=== PATIENT | male | born 1960 | race Caucasian/White ===

== ENCOUNTER → 2020-01-31 | Outpatient (CLI) | payer MEDICARE ==
--- NOTE | 2020-01-31 09:15 | US ---
EXAMINATION TYPE: US gallbladder DATE OF EXAM: 01/31/2020 COMPARISON: None CLINICAL HISTORY: 59-year-old male K81.9Cholecystitis, K29.71Gastritis. Epigastric pain TECHNIQUE: Multiple sonographic images of the right upper quadrant are obtained. FINDINGS: EXAM MEASUREMENTS: Liver Length: 15.9 cm Gallbladder Wall: 0.2 cm CBD: 0.4 cm Right Kidney: 9.4 x 5.3 x 5.9 cm Pancreas: Tail obscured by overlying bowel gas, appears echogenic in appearance Liver: Mildly echogenic. No focal lesion seen. Gallbladder: Multiple mobile echogenic foci seen. The gallbladder itself is mildly distended to 4.1 cm wide. No wall thickening or surrounding fluid. Evidence for sonographic King's sign: neg CBD: wnl Right Kidney: No hydronephrosis. IMPRESSION: 1. Mildly hydropic gallbladder with cholelithiasis. However, there is no wall thickening or sonograph ic King sign. Gallbladder distention probably due to fasting state. If right upper quadrant pain de velops, HIDA scan can be considered. 2. No biliary ductal dilatation. 3. Suspect mild fatty infiltration of the liver.
== END | disposition home or self-care (01) ==
LOC: RADUSWWP 07:17
PROVIDERS: ATTEND Family Medicine
DX: K82.8 Other specified diseases of gallbladder (principal); K80.20 Calculus of gallbladder without cholecystitis without obstruction
CPT/HCPCS: 76705

== ENCOUNTER → 2020-02-17 | Outpatient (CLI) | payer MEDICARE ==
--- NOTE | 2020-02-18 07:55 | NM ---
EXAMINATION TYPE: NM hepatobiliary wo EF DATE OF EXAM: 02/17/2020 COMPARISON: NONE INDICATION: Right upper quadrant pain TECHNIQUE: After the intravenous administration of 4.2 mCi Tc 99m Mebrofenin hepatobiliary scintigrap hy is performed. Images were obtained immediately post injection. FINDINGS: There is prompt uptake and excretion of radiotracer by the liver. Extrahepatic ducts are identified at 10 minutes. Small bowel activity is noted within 14 minutes. Gallbladder is not identified. Cystic duct obstruction should be considered. Correlate for acute chol ecystitis IMPRESSION: 1. Nonvisualization of the gallbladder. Correlate for acute cholecystitis.
== END | disposition home or self-care (01) ==
LOC: RADNMMAIN 14:15
PROVIDERS: ATTEND Family Medicine
DX: R10.11 Right upper quadrant pain (principal)
CPT/HCPCS: 78226; A9537

== ENCOUNTER → 2023-03-25 | Outpatient (CLI) | payer MEDICARE ==
--- NOTE | 2023-03-26 10:26 | CA ---
Transthoracic Echo Report Name: Stevie Hernandez Age: 62 Gender: M : 1960 Exam Date: 03/25/2023 14:03 Exam Location: [facility] Ht (in): 72 Wt (lb): 160 Ordering Physician: Max Burnette DO Attending/Referring Phys: Anai Armando NPC Rug Washer Nori Brown RDCS Procedure CPT: Indications: I10 HTN Cardiac Hx: Technical Quality: Fair Contrast 1: Total Dose (mL): Contrast 2: Total Dose (mL): MEASUREMENTS (Male / Female) Normal Values 2D ECHO LV Diastolic Diameter PLAX 3.7 cm 4.2 - 5.9 / 3.9 - 5.3 cm LV Systolic Diameter PLAX 2.3 cm IVS Diastolic Thickness 1.6 cm 0.6 - 1.0 / 0.6 - 0.9 cm LVPW Diastolic Thickness 1.4 cm 0.6 - 1.0 / 0.6 - 0.9 cm LV Relative Wall Thickness 0.8 RV Internal Dim ED PLAX 2.9 cm M-MODE Aortic Root Diameter MM 3.5 cm LA Systolic Diameter MM 2.2 cm LA Ao Ratio MM 0.6 AV Cusp Separation MM 3.5 cm DOPPLER AV Peak Velocity 133.7 cm/s AV Peak Gradient 7.2 mmHg AV Mean Velocity 78.6 cm/s AV Mean Gradient 3.1 mmHg AV Velocity Time Integral 20.7 cm LVOT Peak Velocity 105.5 cm/s LVOT Peak Gradient 4.4 mmHg LVOT Velocity Time Integral 19.9 cm Mitral E Point Velocity 83.1 cm/s Mitral A Point Velocity 100.9 cm/s Mitral E to A Ratio 0.8 MV Deceleration Time 217.1 ms MV E' Velocity 6.4 cm/s Mitral E to MV E' Ratio 13.0 TR Peak Velocity 326.8 cm/s TR Peak Gradient 42.7 mmHg Right Ventricular Systolic Press 52.7 mmHg FINDINGS Left Ventricle Moderately increased left ventricular wall thickness. Left ventricular cavity size normal. Normal left ventricular systolic function with no obvious regional wall motion abnormalities. Left ventricular ejection fraction is estimated at 55-60 %. Right Ventricle Normal right ventricular size and function. Moderate pulmonary hypertension. Right ventricular systolic pressure estimated at 53 mm hg. Right Atrium Normal right atrial size. Left Atrium Normal left atrial size. Mitral Valve Mild thickening/calcification of the anterior mitral valve leaflet. Mild mitral annular calcification. [id number] mitral regurgitation. Aortic Valve No aortic valve stenosis or regurgitation. Tricuspid Valve Structurally normal tricuspid valve. [id number] tricuspid regurgitation. Pulmonic Valve Trace pulmonic regurgitation. Pericardium No pericardial effusion. Aorta Normal size aortic root and proximal ascending aorta. CONCLUSIONS LVH with preserved systolic function Moderate pulmonary hypertension Thickened mitral valve leaflets with 1-2+ mitral regurgitation Previewed by: Dr. Dae Quan MD (Electronically Signed) Final Date: 26 March 2023 10:25
== END | disposition home or self-care (01) ==
LOC: RADECHMAIN 13:53
PROVIDERS: ATTEND Family Medicine
DX: I34.0 Nonrheumatic mitral (valve) insufficiency (principal); I27.0 Primary pulmonary hypertension; R22.43 Localized swelling, mass and lump, lower limb, bilateral
CPT/HCPCS: 93306

== ENCOUNTER 2023-07-28 08:41 | Emergency (ER) | payer MEDICARE ==
--- NOTE | 2023-07-28 08:48 | ED ---
General Adult HPI - General Stated complaint: Seizure Time Seen by Provider: 07/28/23 08:41 Source: patient, RN notes reviewed, old records reviewed - History of Present Illness Initial comments: This is a 62-year-old male whose found him down in the bathroom and he had a seizure. When EMS arrived he was no longer seizing but he then began to seize again and according to EMS he had a total of 4 seizures this morning. EMS did give 5 mg of Versed. states he has had no history of seizures. There did not appear to be any trauma. According to the slept on the couch last night because he was coughing quite a bit and she heard something this morning in the bathroom when she went to check on him. Patient is not on any blood thinners. And at this time there is no other history available. - Related Data Home Medications Medication Instructions Recorded Confirmed Vancomycin 1,500 mg IV BID 02/11/14 02/11/14 Previous Rx's Medication Instructions Recorded HYDROcodone/APAP 7.5-325MG [[place] 1 each PO Q6H PRN #30 tab 02/16/14 7.5-325] Nicotine 21Mg/24Hr Patch [Habitrol] 1 patch TRANSDERM DAILY #5 patch 02/16/14 Omeprazole [PriLOSEC] 40 mg PO AC-BRKFST #30 capsule. 02/16/14 Warfarin [Coumadin] 2.5 mg PO DAILY@1800 #30 tablet 02/16/14 bisacodyL [Dulcolax] 5 mg PO DAILY PRN #30 tablet. 02/16/14 Allergies Allergy/AdvReac Type Severity Reaction Status Date / Time No Known Allergies Allergy Verified 07/28/23 08:47 Review of Systems ROS Statement: Those systems with pertinent positive or pertinent negative responses have been documented in the HPI. ROS Other: All systems not noted in ROS Statement are negative. Past Medical History Past Medical History: Deep Vein Thrombosis (DVT), Hypertension History of Any Multi-Drug Resistant Organisms: None Reported Past Surgical History: Orthopedic Surgery Additional Past Surgical History / Comment(s): lt leg---rods Past Anesthesia/Blood Transfusion Reactions: No Reported Reaction Past Psychological History: No Psychological Hx Reported Past Alcohol Use History: None Reported General Exam - General Exam Comments Initial Comments: GENERAL: Patient is well-developed and well-nourished. Patient is nontoxic and well- hydrated and is in no acute distress. ENT: Neck is soft and supple. No significant lymphadenopathy is noted. Oropharynx is clear. Moist mucous membranes. Neck has full range of motion without eliciting any pain. EYES: The sclera were anicteric and conjunctiva were pink and moist. Extraocular movements were intact and pupils were equal round and reactive to light. Eyelids were unremarkable. PULMONARY: Unlabored respirations. Good breath sounds bilaterally. No audible rales rhonchi or wheezing was noted. CARDIOVASCULAR: Patient is tachycardic at 130 beats a minute ABDOMEN: Soft and nontender with normal bowel sounds. No palpable organomegaly was noted. There is no palpable pulsatile mass. SKIN: Skin is clear with no lesions or rashes and otherwise unremarkable. NEUROLOGIC: Patient is is not alert at this time.. Cranial nerves II through XII are grossly intact. MUSCULOSKELETAL: Normal extremities with adequate strength and full range of motion. No lower e xtremity swelling or edema. No calf tenderness. LYMPHATICS: No significant lymphadenopathy is noted PSYCHIATRIC: Unable to assess Course Vital Signs 07/28/23 07/28/23 07/28/23 08:42 10:16 10:29 Temperature 98.1 F Pulse Rate 129 H 111 H 118 H Respiratory 20 22 20 Rate Blood Pressure 189/111 163/103 149/90 O2 Sat by Pulse 94 L 100 100 Oximetry Medical Decision Making - Medical Decision Making EKG was interpreted by myself. EKG shows a sinus tachycardia on a 133 bpm LA interval 250 one QRS is 88 QT interval 306 QTC is 384. Patient's EKG shows no ST segment elevation or depression it is a very poor quality EKG Was pt. sent in by a medical professional or institution (, PA, [employer], urgent care, hospital, or fpc...) When possible be specific @ -No Did you speak to anyone other than the patient for history (EMS, parent, family, police, friend...)? What history was obtained from this source @ -Developed a history initially Did you review nursing and triage notes (agree or disagree)? Why? @ -I reviewed and agree with nursing and triage notes Were old charts reviewed (outside hosp., previous admission, EMS record, old EKG, old radiological studies, urgent care reports/EKG's, fpc records)? Report findings @ -I reviewed prior charts and lab work on this patient Differential Diagnosis (chest pain, altered mental status, abdominal pain women, abdominal pain men, vaginal bleeding, weakness, fever, dyspnea, syncope, headache, dizziness, GI bleed, back pain, seizure, CVA, palpatations, mental health, musculoskeletal)? @ -Differential Altered Mental Status: Hypoglycemia, DKA, hypercapnia, ETOH, overdose, CO poisoning, trauma, myxedema coma, HTN encephalopathy, infection, encephalitis, psychosis, intercranial hemorrhage, hepatic encephalopathy, meningitis, CVA, this is not meant to be an all-inclusive list EKG interpreted by me (3pts min.). @ -As above X-rays interpreted by me (1pt min.). @ -Chest x-ray shows no acute abnormality CT interpreted by me (1pt min.). @ -CT of the brain shows a subarachnoid hemorrhage in the frontal portion of the brain. CT of the C-spine shows no acute abnormality U/S interpreted by me (1pt. min.). @ -None done What testing was considered but not performed or refused? (CT, X-rays, U/S, labs)? Why? @ -None What meds were considered but not given or refused? Why? @ -None Did you discuss the management of the patient with other professionals (professionals i.e. , PA, [employer], lab, RT, psych nurse, secondary social studies teacher, sustainability communicator, teacher, special weapons and tactics officer, telephonic nurse case manager)? Give summary @ -I spoke with Dr. Aguilar and he wanted the patient transferred [facility]. Spoke with family did initially wanted the patient to go to [facility] but since the neurointerventionalist Alan looked at the films and [facility] was already contacted family reconsidered and decided go to [facility]. Patient's blood pressure was elevated I started the patient on Cardene to bring her blood pressure down under 162 about 140. Patient was also given Keppra Was smoking cessation discussed for >3mins.? @ -No Was critical care preformed (if so, how long)? @ -35 minutes Were there social determinants of health that impacted care today? How? (Homelessness, low income, unemployed, alcoholism, drug addiction, transportation, low edu. Level, literacy, decrease access to med. care, correction, rehab)? @ -No Was there de-escalation of care discussed even if they declined (Discuss DNR or withdrawal of care, Hospice)? DNR status @ -No What co-morbidities impacted this encounter? (DM, HTN, Smoking, COPD, CAD, Cancer, CVA, ARF, Chemo, Hep., AIDS, mental health diagnosis, sleep apnea, morbid obesity)? @ -None Was patient admitted / discharged? Hospital course, mention meds given and route, prescriptions, significant lab abnormalities, going to OR and other pertinent info. @ -I spoke with [facility] ER physician Dr. Trevino and they accepted the transfer of patient will be transferred Undiagnosed new problem with uncertain prognosis? @ -No Drug Therapy requiring intensive monitoring for toxicity (Heparin, Nitro, Insulin, Cardizem)? @ -No Were any procedures done? @ -No Diagnosis/symptom? @ -Subarachnoid hemorrhage Acute, or Chronic, or Acute on Chronic? @ -Acute Uncomplicated (without systemic symptoms) or Complicated (systemic symptoms)? @ -Complicated Side effects of treatment? @ -No Exacerbation, Progression, or Severe Exacerbation? @ -No Poses a threat to life or bodily function? How? (Chest pain, USA, MS, pneumonia, PE, COPD, DKA, ARF, appy, cholecystitis, CVA, Diverticulitis, Homicidal, Suicidal, threat to staff... and all critical care pts) @ -Yes this could lead to increase hemorrhage and - Lab Data Result diagrams: 07/28/23 08:56 07/28/23 08:56 Lab Results 07/28/23 07/28/23 07/28/23 Range/Units 08:52 08:56 08:56 WBC 25.8 H (3.8-10.6) k/uL RBC 5.70 (4.30-5.90) m/uL Hgb 18.1 H (13.0-17.5) gm/dL Hct 56.9 H (39.0-53.0) % MCV 99.9 (80.0-100.0) fL MCH 31.8 (25.0-35.0) pg MCHC 31.8 (31.0-37.0) g/dL RDW 17.2 H (11.5-15.5) % Plt Count 376 (150-450) k/uL MPV 9.5 Neutrophils % 87 % Lymphocytes % 4 % Monocytes % 7 % Eosinophils % 0 % Basophils % 0 % Neutrophils # 22.5 H (1.3-7.7) k/uL Lymphocytes # 1.1 (1.0-4.8) k/uL Monocytes # 1.8 H (0-1.0) k/uL Eosinophils # 0.1 (0-0.7) k/uL Basophils # 0.1 (0-0.2) k/uL Hypochromasia Slight Anisocytosis Slight Macrocytosis Slight Sodium (137-145) mmol/L Potassium (3.5-5.1) mmol/L Chloride (98-107) mmol/L Carbon Dioxide (22-30) mmol/L Anion Gap mmol/L BUN (9-20) mg/dL Creatinine (0.66-1.25) mg/dL Est GFR (CKD-EPI)AfAm (>60 ml/min/1.73 sqM) Est GFR (CKD-EPI)NonAf (>60 ml/min/1.73 sqM) Glucose (74-99) mg/dL POC Glucose (mg/dL) 212 H (70-110) mg/dL POC Glu Research/Program Director ID Johny Pace Calcium (8.4-10.2) mg/dL Total Bilirubin (0.2-1.3) mg/dL AST (17-59) U/L ALT (4-49) U/L Alkaline Phosphatase (38-126) U/L Troponin I (0.000-0.034) ng/mL Total Protein (6.3-8.2) g/dL Albumin (3.5-5.0) g/dL Ur Drug Screen Comment SEE COMMENT 07/28/23 07/28/23 Range/Units 08:56 08:56 WBC (3.8-10.6) k/uL RBC (4.30-5.90) m/uL Hgb (13.0-17.5) gm/dL Hct (39.0-53.0) % MCV (80.0-100.0) fL MCH (25.0-35.0) pg MCHC (31.0-37.0) g/dL RDW (11.5-15.5) % Plt Count (150-450) k/uL MPV Neutrophils % % Lymphocytes % % Monocytes % % Eosinophils % % Basophils % % Neutrophils # (1.3-7.7) k/uL Lymphocytes # (1.0-4.8) k/uL Monocytes # (0-1.0) k/uL Eosinophils # (0-0.7) k/uL Basophils # (0-0.2) k/uL Hypochromasia Anisocytosis Macrocytosis Sodium 141 (137-145) mmol/L Potassium 4.0 (3.5-5.1) mmol/L Chloride 96 L (98-107) mmol/L Carbon Dioxide 13 L (22-30) mmol/L Anion Gap 32 mmol/L BUN 21 H (9-20) mg/dL Creatinine 1.26 H (0.66-1.25) mg/dL Est GFR (CKD-EPI)AfAm 70 (>60 ml/min/1.73 sqM) Est GFR (CKD-EPI)NonAf 60 (>60 ml/min/1.73 sqM) Glucose 222 H (74-99) mg/dL POC Glucose (mg/dL) (70-110) mg/dL POC Glu Research/Program Director ID Calcium 11.1 H (8.4-10.2) mg/dL Total Bilirubin 1.1 (0.2-1.3) mg/dL AST 63 H (17-59) U/L ALT 51 H (4-49) U/L Alkaline Phosphatase 92 (38-126) U/L Troponin I 0.049 H* (0.000-0.034) ng/mL Total Protein 8.5 H (6.3-8.2) g/dL Albumin 5.3 H (3.5-5.0) g/dL Ur Drug Screen Comment Critical Care Time Critical Care Time: Yes Total Critical Care Time: 35 Disposition Clinical Impression: Generalized seizure, Subarachnoid hemorrhage Disposition: OTHER INSTITUTION NOT DEFINED Is patient prescribed a controlled substance at d/c from ED?: No Referrals: Max Burnette DO [Primary Care Provider] - 1-2 days Time of Disposition: 10:40 - Out of Hospital Transfer - Req. Specs Out of Hospital Transfer - Requested Specifics: Other Emergency Center ([facility]
[2023-07-28 08:49] VITALS: TEMP 98.1
[2023-07-28 08:53] LABS: Glucose,Whole Blood 212 mg/dL (70-110)
[2023-07-28 09:03] LABS: Anisocytosis Slight; Basophils # (A) 0.1 k/uL (0-0.2); Basophils % (A) 0 %; Eosinophils # (A) 0.1 k/uL (0-0.7); Eosinophils % (A) 0 %; HGB 18.1 gm/dL (13.0-17.5); Hypochromasia Slight; Lymphocytes # (A) 1.1 k/uL (1.0-4.8); Lymphocytes % (A) 4 %; MCH 31.8 pg (25.0-35.0); MCHC 31.8 g/dL (31.0-37.0); MCV 99.9 fL (80.0-100.0); Macrocytosis Slight; Mean Platelet Volume 9.5; Monocytes # (A) 1.8 k/uL (0-1.0); Monocytes % (A) 7 %; Neutrophils # (A) 22.5 k/uL (1.3-7.7); Neutrophils % (A) 87 %; Platelet Count 376 k/uL (150-450); RDW 17.2 % (11.5-15.5); WBC 25.8 k/uL (3.8-10.6)
[2023-07-28 09:14] LABS: AST 63 U/L (17-59); African American GFR (CKD) 70 (>60 ml/min/1.73 sqM); Albumin 5.3 g/dL (3.5-5.0); Alkaline Phosphatase 92 U/L (38-126); Anion Gap 32 mmol/L; Blood Urea Nitrogen 21 mg/dL (9-20); Calcium 11.1 mg/dL (8.4-10.2); Carbon Dioxide 13 mmol/L (22-30); Chloride 96 mmol/L (98-107); Glucose 222 mg/dL (74-99); Non-African American GFR(CKD) 60 (>60 ml/min/1.73 sqM); Sodium 141 mmol/L (137-145); Total Bilirubin 1.1 mg/dL (0.2-1.3); Total Protein 8.5 g/dL (6.3-8.2)
[2023-07-28 09:17] LABS: HCT 56.9 % (39.0-53.0)
--- NOTE | 2023-07-28 09:17 | CT ---
EXAMINATION TYPE: CT brain kaylie gama DATE OF EXAM: 07/28/2023 COMPARISON: None HISTORY: 62-year-old male fall, found unresponsive, trauma, pain, fall CT DLP: 1558.2 mGycm Automated exposure control for dose reduction was used. Technique: Examination of the head was done in axial plane without intravenous contrast. Coronal and sagittal reconstructions performed. CT of the cervical spine was obtained in axial plane without intravenous injection of contrast mater ial. Coronal and sagittal reformatted images were obtained from the axial views for evaluation of f ractures, spinal alignment and canal. FINDINGS: Head: There is a large area of encephalomalacia relating to old infarct right NURSING CARE ATTENDANT territory. Small focus of acute subarachnoid blood or tiny cortical contusion anterior left frontal lobe, axial image 42. No other extra-axial fluid collection seen. No mass, mass effect, midline shift, or herniation. Fitzgerald-white matter differentiation is maintained. No calvarial fracture. Trace mucosal thickening ethmoid air cells. Orbits and globes are intact. Mast oid air cells well pneumatized. Cervical spine: No craniocervical junction abnormality, predental space widening, or prevertebral soft tissue swellin g. Reversal of the normal cervical lordosis. Degenerative grade 1 anterolisthesis C3-C4 and C7-T1. Moderate to advanced disc/endplate degenerative change C5-C7 levels. There is a small irregular nodule medial right upper lobe measuring 5 mm which should be reassessed a t follow-up. Mild narrowing of the spinal canal due to disc osteophyte complex at C5-C6 and C6-C7. Moderate neuroforaminal stenosis on the right at C3-C4 and C4-C5. Mild additional levels. No acute fracture seen of the cervical spine. Sagittal and coronal reformatted images confirm above findings. COMBINED IMPRESSION: 1. Trace acute subarachnoid hemorrhage anterior left frontal lobe versus tiny cortical contusion. No mass effect, midline shift, or herniation. 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 2. No acute fracture of the cervical spine. Moderate to advanced spondylotic change especially C5-C7 levels. Degenerative grade 1 anterolisthesis C3-C4 and C7-T1. 3. Recommend a 3 month follow-up CT chest to reassess a 5 mm irregular right upper lobe pulmonary nod ule in order to exclude early lung cancer. THE PATIENT SHOULD NOT BE LOST TO FOLLOW-UP. Critical findings called to Dr. Jaeger in the ER at 9:13 AM.
--- NOTE | 2023-07-28 09:18 | XR ---
EXAMINATION TYPE: XR chest 1V DATE OF EXAM: 07/28/2023 COMPARISON: 02/16/2014 HISTORY: 62-year-old male confusion, altered mental status, seizure TECHNIQUE: Single frontal view of the chest is obtained. FINDINGS: Heart normal size. Hyperinflation. No consolidation or pleural effusion. IMPRESSION: COPD. No acute process seen.
[2023-07-28 09:21] LABS: ALT 51 U/L (4-49)
[2023-07-28] MEDS ORDERED: LORazepam 2 MG/ML INJ IV STA ×2 (09:39→10:00)
[2023-07-28] MEDS ORDERED: niCARdipine 20 MG in SODIUM CHLORIDE 0.9% 192 ML IV SCH (09:45)
[2023-07-28] MEDS ORDERED: levETIRAcetam IV 500 MG/5 ML VIAL IVP STA (09:46)
[2023-07-28 10:57] LABS: Amphetamine Screen,Urine Not Detected (NotDetected); Barbiturate Screen,Urine Not Detected (NotDetected); Benzodiazepines Screen,Urine Not Detected (NotDetected); Cocaine Screen,Urine Not Detected (NotDetected); Methadone Screen, Urine Not Detected (NotDetected); Opiate Screen,Urine Not Detected (NotDetected); Oxycodone Screen, Urine Not Detected (NotDetected); Phencyclidine Screen,Urine Not Detected (NotDetected); Tricyclic Antidepressant,Urine Not Detected (NotDetected); Urn Cannabinoid Scrn Detected (NotDetected)
--- NOTE | 2023-07-28 10:57 | CT ---
EXAMINATION TYPE: CODE STROKE: CTA head neck DATE OF EXAM: 07/28/2023 COMPARISON: CT brain same day HISTORY: 62-year-old male subarachnoid bleed, stroke TECHNIQUE: Contiguous axial scanning of the head and neck performed with IV Contrast, patient injecte d with 65 mL of Isovue 300. Coronal and sagittal reconstructions performed. 3-D reconstructions gener ated on a dedicated independent workstation. CT DLP: 463.1 mGycm Automated exposure control for dose reduction was used. FINDINGS: NECK: Conventional arch was a branching anatomy. Codominant vertebral arteries are patent throughout their course. The right common and right internal carotid arteries are widely patent by negative criteria. The left common and left internal carotid arteries are widely patent by NASCET criteria. Only minimal atherosclerotic changes at the carotid bifurcations. 8 mm hypodense nodule left lobe of the thyroid gland. Some asymmetric left-sided lingual tonsillar hy pertrophy noted. Bulky anterior endplate spondylosis C5-C7 levels. Head: The vertebral and basilar arteries as well as the remainder of the posterior circulation are patent. The bilateral internal carotid arteries and remainder of the anterior circulation are patent. No aneurysmal change is seen. IMPRESSION: 1. NECK: WIDELY PATENT VERTEBRAL AND CAROTID ARTERIES OF THE NECK. 2. HEAD: NO LARGE VESSEL INTRACRANIAL ARTERIAL OCCLUSION, SIGNIFICANT STENOSIS, OR ANEURYSMAL CHANGE IS SEEN.
[2023-07-28 11:01] LABS: Partial Thromboplastin Time 20.7 sec (22.0-30.0)
[2023-07-28 11:36] VITALS: BP 121/75; PULSE 121; RESP 22
== END 2023-07-28 10:50 | disposition other institution (70) ==
LOC: EC 08:41
DX: G40.409 Other generalized epilepsy and epileptic syndromes, not intractable, without status epilepticus (principal); I60.9 Nontraumatic subarachnoid hemorrhage, unspecified; I10 Essential (primary) hypertension; J44.9 Chronic obstructive pulmonary disease, unspecified
CPT/HCPCS: 36415; 93005; 80053; 84484; 85025; 85610; 85730; 80306; 71045; 72125; 70496; 70450; 70498; 99291; 96365; 96375 ×2; 96376; J2060; J1953; Q9967